=== PATIENT | male | born 1970 ===

== ENCOUNTER → 2023-03-06 16:13 | Outpatient (CLI) | payer BC, SELFPAY ==
--- NOTE | ~2023-03-06 | XR_ITS ---
EXAMINATION: XR chest 2V Exam Date/Time: 03/06/2023 16:16 CDT HISTORY: R76.11 - Nonspecific reaction to tuberculin skin test wit... Comparison: None. RESULT: Lines, tubes, and devices: None. Lungs and pleura: Calcified right midlung granuloma otherwise clear. Cardiomediastinal silhouette: Calcified mediastinal nodes. Otherwise unremarkable. Other: No acute osseous or upper abdominal finding. IMPRESSION: No acute cardiopulmonary process. Reviewed, dictated and finalized at location K.
--- NOTE | ~2023-03-06 | XR_ITS ---
Cervical Spine: AP, lateral, open-mouth views Clinical History: Pain Findings: The normal lordotic curve is maintained. No fracture seen. There is 3 mm retrolisthesis of C5 over C6. There is mild degenerative disc narrowing at C5-C6. Pre-vertebral soft tissues are unrema rkable. Impression: 3 mm retrolisthesis of C5 over C6, with mild degenerative disc narrowing at this level. Reviewed, dictated and finalized at location M. Impression: 3 mm retrolisthesis of C5 over C6, with mild degenerative disc narrowing at thi s level.
== END ==
PROVIDERS: PCP Nurse Practitioner Family; Visit Provider Nurse Practitioner Family
DX: R76.11 Nonspecific reaction to tuberculin skin test without active tuberculosis (principal); M25.512 Pain in left shoulder; M54.2 Cervicalgia
CPT/HCPCS: 71046; 72040

== ENCOUNTER 2023-03-07 07:58 | Outpatient (CLI) | payer BC, SELFPAY ==
[2023-03-07 13:02] LABS: Basophils Percent Auto 0.6 % (0.2-1.2); Eosinophils Absolute Auto 0.1 K/mm3 (0-0.3); Eosinophils Percent Auto 1.4 % (0-4.4); Hematocrit 44.4 % (42.0-52.0); Hemoglobin 15.1 g/dL (14.0-18.0); Immature Granulocyte Absolute 0.02 K/mm3 (0.00-0.031); Immature Granulocyte Percent A 0.4 % (0-0.5); Lymphocytes Absolute Auto 1.45 K/mm3 (0.9-3.2); Lymphocytes Percent Auto 29.5 % (18.3-44.2); Mean Corpuscular Hemoglobin 31.7 pg (26-34); Mean Corpuscular Volume 93.1 fl (80-100); Mean Platelet Volume 9.7 fl (7.4-10.4); Monocytes Absolute Auto 0.5 K/mm3 (0.1-0.6); Monocytes Percent Auto 9.2 % (2.6-8.5); Neutrophils Absolute Auto 2.9 K/mm3 (1.3-6.7); Neutrophils Percent Auto 58.9 % (45.5-73.1); Platelet Count Result 261 k/mm3 (150-375); Red Blood Count 4.77 M/mm3 (4.6-6.20); Red Cell Distribution Width 12.5 % (11.5-14.5); White Blood Count 4.9 K/mm3 (4.5-10.0)
[2023-03-07 13:14] LABS: Anion Gap 4 mmol/L (8-16); Blood Urea Nitrogen 16 mg/dL (9-20); Calcium 9.3 mg/dL (8.4-10.2); Carbon Dioxide 32 mmol/L (22-30); Chloride 103 mmol/L (98-107); Cholesterol 234 mg/dL (0-200); Estimated Glomerular Filt Rate > 60; Glucose 86 mg/dL (65-110); HDL Direct 55 mg/dL; Potassium 4.6 mmol/L (3.4-5.0); Sodium 139 mmol/L (137-145); Triglycerides 114 mg/dL (<150)
[2023-03-07 13:24] LABS: LDL Cholesterol Direct 139 mg/dL
[2023-03-07 13:41] LABS: Prostate Specific Antigen 1.3 ng/mL (< OR = 4.0)
== END 2023-03-07 07:59 | disposition home or self-care (01) ==
LOC: ANHGOSHLAB 07:59
PROVIDERS: PCP Nurse Practitioner Family; Visit Provider Nurse Practitioner Family
DX: Z00.00 Encounter for general adult medical examination without abnormal findings (principal); Z12.5 Encounter for screening for malignant neoplasm of prostate
CPT/HCPCS: 36415; 80048; 80061; 84153; 84443; 85025; G0103